=== PATIENT | female | born 1985 ===

== ENCOUNTER 2019-09-29 03:22 | Emergency (ER) | payer SELFPAY ==
[2019-09-29] MEDS ORDERED: Ketorolac Tromethamine 60 MG/2 ML VIAL ONE (03:49)
[2019-09-29] MEDS ORDERED: Ketorolac Tromethamine 60 MG/2 ML VIAL IM SCH (04:00)
[2019-09-29] MEDS ORDERED: Baclofen 10 MG TAB PO SCH (04:00)
== END 2019-09-29 04:16 | disposition home or self-care (01) ==
LOC: ERS 03:22
DX: S39.012A Strain of muscle, fascia and tendon of lower back, initial encounter (principal); F41.9 Anxiety disorder, unspecified; F31.9 Bipolar disorder, unspecified; F43.10 Post-traumatic stress disorder, unspecified; F90.9 Attention-deficit hyperactivity disorder, unspecified type; X50.9XXA Other and unspecified overexertion or strenuous movements or postures, initial encounter
CPT/HCPCS: 96372; 99283; J1885